=== PATIENT | male | born 1935 | race Caucasian/White ===

== ENCOUNTER 2017-06-26 05:50 | Observation (INO) | payer MEDICARE, BC ==
--- NOTE | 2017-06-26 06:09 | EDM.PDOC ---
ED HPI GENERAL MEDICAL PROBLEM - General Chief Complaint: General Stated Complaint: DIZZY Time Seen by Provider: 06/26/17 06:00 Source of Information: Reports: Patient - History of Present Illness INITIAL COMMENTS - FREE TEXT/NARRATIVE: Ramin is an 82 year old male who presents to the ED with complaints of dizziness. He reports that he woke up around 3 am and felt somewhat dizzy. He then went back to bed and got up around 530 and felt even more dizzy. He reports he had a near syncopal episode while in the bathroom. At times he describes the dizziness as spinning, "like everything is moving very fast" and other times he states it "felt as though he was going to pass out." He reports he had to lean on the tub and doesn't really remember what happened. He then called for a ride to the ED. At time of ED presentation, dizziness has resolved. He does have some slight dizziness with position changes. He reports he has been eating and drinking ok. He reports a history of 2 strokes. He is on coumadin. Last INR was checked on and was 1.54. He reports he has been taking his coumadin as prescribed. He denies any recent illness. Reports that other than the dizziness he has been feeling ok. He is somewhat of a poor historian. Onset: Today Onset Date: 06/26/17 Onset Time: 03:00 Duration: Intermittent Associated Symptoms: Reports: Confusion, Syncope (near), Other (dizziness). Denies: Chest Pain, Cough, cough w sputum, Diaphoresis, Fever/Chills, Headaches , Loss of Appetite, Malaise, Nausea/Vomiting, Rash, Seizure, Shortness of Breath , Weakness - Related Data Allergies Allergy/AdvReac Type Severity Reaction Status Date / Time codeine Allergy Cannot Verified 06/26/17 05:57 Remember contrast dye Allergy Difficulty Uncoded 06/26/17 05:57 Breathing Home Meds: Home Meds Aspirin [Roberta Chewable Aspirin] 81 mg PO DAILY 11/06/13 [History] Metoprolol Succinate [Toprol XL 50mg] 50 mg PO BID 11/06/13 [History] Omeprazole 20 mg PO DAILY 11/06/13 [History] Polyethylene Glycol 3350 [Miralax] 17 gm PO DAILY 11/06/13 [History] diphenhydrAMINE [Benadryl] 25 mg PO BEDTIME PRN #30 11/08/13 [Rx] Dutasteride [Dutasteride] 0.5 mg PO DAILY 06/26/17 [History] LORazepam 0.5 mg PO BID PRN 06/26/17 [History] Tamsulosin [Tamsulosin 24 Hr] 0.4 mg PO DAILY 06/26/17 [History] Warfarin [Coumadin] 5 mg PO ASDIRECTED 06/26/17 [History] Social & Family History - Tobacco Use Second Hand Smoke Exposure: No - Alcohol Use Days Per Week of Alcohol Use: 0 - Recreational Drug Use Recreational Drug Use: No ED ROS GENERAL - Review of Systems Review Of Systems: See Below Constitutional: Denies: Fever, Chills, Weakness, Fatigue, Decreased Appetite HEENT: Reports: Hearing Loss, Vertigo. Denies: Ear Pain, Eye Pain, Rhinitis, Sinus Problem, Throat Pain, Vision Change Respiratory: Denies: Shortness of Breath, Pleuritic Chest Pain, Cough, Sputum Cardiovascular: Reports: Dyspnea on Exertion, Lightheadedness, Syncope (near). Denies: Chest Pain, Blood Pressure Problem, Edema, Palpitations Endocrine: Reports: No Symptoms GI/Abdominal: Reports: Constipation. Denies: Abdominal Pain, Black Stool, Bloody Stool, Diarrhea, Decreased Appetite, Hematochezia, Melena, Nausea, Vomiting : Reports: Frequency, Urgency, Urinary Retention. Denies: Dysuria, Hematuria Musculoskeletal: Reports: No Symptoms Skin: Reports: No Symptoms Neurological: Reports: Dizziness, Syncope. Denies: Confusion, Numbness, Paresthesia, Pre-Existing Deficit, Seizure, Tingling, Trouble Speaking, Difficulty Walking, Weakness, Change in Speech, Gait Disturbance Psychiatric: Reports: No Symptoms Hematologic/Lymphatic: Reports: No Symptoms Immunologic: Reports: No Symptoms ED EXAM, GENERAL - Physical Exam Exam: See Below Exam Limited By: No Limitations General Appearance: Alert, WD/WN, No Apparent Distress Eye Exam: Bilateral Eye: Normal Fundi, Normal Inspection, PERRL Ears: Normal External Exam, Normal Canal, Hearing Grossly Normal, Normal TMs Ear Exam: Bilateral Ear: Auricle Normal, Canal Normal, TM normal Nose: Normal Inspection, Normal Mucosa, No Blood Throat/Mouth: Normal Inspection, Normal Lips, Normal Teeth, Normal Gums, Normal Oropharynx, Normal Voice, No Airway Compromise Head: Atraumatic, Normocephalic Neck: Normal Inspection, Supple, Non-Tender, Full Range of Motion Respiratory/Chest: No Respiratory Distress, Lungs Clear, Normal Breath Sounds, No Accessory Muscle Use, Chest Non-Tender Cardiovascular: Normal Peripheral Pulses, Regular Rate, Rhythm, No Edema, No Gallop, No JVD, No Murmur, No Rub Back Exam: Normal Inspection, Full Range of Motion, NT Neurological: Alert, Oriented, CN II-XII Intact, Normal Cognition, Normal Gait, Normal Reflexes, No Motor/Sensory Deficits Psychiatric: Normal Affect, Normal Mood Skin Exam: Warm, Dry, Intact, Normal Color, No Rash Lymphatic: No Adenopathy Course - Vital Signs Last Recorded V/S: Last Vital Signs Temp 96.8 F 06/26/17 15:46 Pulse 64 06/26/17 15:46 Resp 20 06/26/17 15:46 BP 132/72 06/26/17 15:46 Pulse Ox 97 06/26/17 15:46 Orthostatic Blood Pressure [ 154/88 Standing] Orthostatic Blood Pressure [ 157/88 Sitting] Orthostatic Blood Pressure [ 162/84 Supine] - Orders/Labs/Meds Orders: Active Orders 24 hr Category Date Time Status Patient Status [ADT] Routine ADT 06/26/17 09:39 Active Cardiac Monitoring [RC] 0800,1999 Care 06/26/17 09:39 Active Oxygen Therapy [RC] .PRN Care 06/26/17 09:39 Active Up With Assistance [RC] .PRN Care 06/26/17 09:39 Active Vital Signs [RC] 0000,0400,0800,1200,1600,2000 Care 06/26/17 09:39 Active PT Evaluation and Treatment [CONS] Routine Cons 06/26/17 09:39 Active Regular Diet [DIET] Diet 06/26/17 Breakfast Active Ang Head wo Cont [MR] Routine Exams 06/26/17 Taken Head wo Cont [CT] Stat Exams 06/26/17 06:08 Taken Sinus Less 3V [CR] Routine Exams 06/26/17 Taken Acetaminophen [Tylenol] Med 06/26/17 09:39 Active 650 mg PO Q4H PRN Magnesium Hydroxide [Milk of Magnesia] Med 06/26/17 09:39 Active 30 ml PO Q12H PRN Ondansetron [Zofran] Med 02/20/18 09:39 Active 4 mg IV Q6H PRN Sodium Chloride 0.9% [Saline Flush] Med 06/26/17 09:39 Active 10 ml FLUSH ASDIRECTED PRN Temazepam [Restoril] Med 06/26/17 09:39 Active 15 mg PO BEDTIME PRN Saline Lock Insert [OM.PC] Routine Oth 06/26/17 09:39 Ordered Resuscitation Status Routine Resus Stat 06/26/17 07:56 Ordered Medication Orders Acetaminophen (Tylenol) 650 mg PO Q4H PRN PRN Reason: Pain (Mild 1-3)/fever Aspirin (Aspirin) 81 mg PO DAILY [facility] Diphenhydramine HCl (Benadryl) 25 mg PO BEDTIME PRN PRN Reason: Insomnia Lorazepam (Ativan) 0.5 mg PO BID PRN PRN Reason: Anxiety Magnesium Hydroxide (Milk Of Magnesia) 30 ml PO Q12H PRN PRN Reason: Constipation Ptom Dutasteride (0.5 Mg Cap) 0.5 mg PO DAILY [facility] Last Admin: 06/26/17 14:14 Dose: 0.5 mg Ptom Metoprolol Succinate [Toprol Xl 50mg] 50 Mg) 50 mg PO BID [facility] Ptom Omeprazole (20 Mg Cap) 20 mg PO DAILY [facility] Last Admin: 06/26/17 14:15 Dose: 20 mg Ondansetron HCl (Zofran) 4 mg IV Q6H PRN PRN Reason: Nausea/Vomiting Polyethylene Glycol (Miralax) 17 gm PO DAILY [facility] Sodium Chloride (Saline Flush) 10 ml FLUSH ASDIRECTED PRN PRN Reason: Keep Vein Open Tamsulosin HCl (Flomax) 0.4 mg PO DAILY [facility] Last Admin: 06/26/17 14:15 Dose: 0.4 mg Temazepam (Restoril) 15 mg PO BEDTIME PRN PRN Reason: Sleep Warfarin Sodium (Coumadin) 0 mg PO DAILY@1200 [facility] Labs: Laboratory Tests 06/26/17 06/26/17 06/26/17 Range/Units 06:23 06:35 06:35 WBC 8.3 (5.0-10.0) 10^3/uL RBC 4.33 L (4.50-6.00) 10^6/uL Hgb 14.0 (14.0-18.0) g/dL Hct 40.8 (40.0-54.0) % MCV 94.2 H (82.0-94.0) fL MCH 32.3 H (27.0-32.0) pg MCHC 34.3 (33.0-38.0) g/dL RDW Coeff of Desiree 13.4 (11.0-15.0) % Plt Count 187 (150-400) 10^3/uL Neut % (Auto) 52.3 (35-85) % Lymph % (Auto) 36.2 (10-55) % [place] % (Auto) 9.0 (0-16) % Eos % (Auto) 1.9 (0-5) % Baso % (Auto) 0.6 (0-3) % Neut # (Auto) 4.32 (1.80-7.00) 10^3/uL Lymph # (Auto) 2.99 (1.00-4.80) 10^3/uL [place] # (Auto) 0.74 (0.00-0.80) 10^3/uL Eos # (Auto) 0.16 (0.00-0.45) 10^3/uL Baso # (Auto) 0.05 10^3/uL PT (9.7-12.3) SEC INR (0.92-1.18) APTT (24.5-30.9) SEC D-Dimer, Quantitative (0.00-0.50) Sodium 140 (136-145) mEq/L Potassium 4.3 (3.5-5.0) mEq/L Chloride 104 (98-106) mEq/L Carbon Dioxide 29 (21-32) mmol/L BUN 14 (7-18) mg/dL Creatinine 1.2 (0.7-1.3) mg/dL Est Cr Clr Drug Dosing 42.84 mL/min Estimated GFR (MDRD) 58 L (>=60) mL/min Glucose 119 H (75-99) mg/dL Calcium 9.1 (8.4-10.1) mg/dL Total Bilirubin 0.8 (0.0-1.0) mg/dL AST 20 (15-37) U/L ALT 29 (12-78) U/L Alkaline Phosphatase 105 (46-116) U/L Lactate Dehydrogenase 187 (100-190) U/L Troponin I < 0.017 (0.00-0.06) ng/mL C-Reactive Protein < 0.2 L (0.2-0.8) mg/dL Total Protein 6.7 (6.4-8.2) g/dL Albumin 3.5 (3.4-5.0) g/dL Urine Color Yellow (YELLOW) Urine Appearance Clear (CLEAR) Urine pH 6.5 (4.5-8.0) Ur Specific [place] 1.015 (1.003-1.020) Urine Protein Negative (NEGATIVE) mg/dL Urine Glucose (UA) Negative (NEGATIVE) mg/dL Urine Ketones Negative (NEGATIVE) mg/dL Urine Occult Blood Trace-intact H (NEGATIVE) Urine Nitrite Negative (NEGATIVE) Urine Bilirubin Negative (NEGATIVE) Urine Urobilinogen 0.2 (0.2-1.0) EU/dL Ur Leukocyte Esterase Negative (NEGATIVE) Urine RBC 0-5 (0-5) /HPF Urine WBC Not seen (0-5) /HPF Ur Squamous Epith Cells Occasional H (NOT SEEN) /HPF Urine Mucus Occasional H (NOT SEEN) /HPF 06/26/17 Range/Units 06:35 WBC (5.0-10.0) 10^3/uL RBC (4.50-6.00) 10^6/uL Hgb (14.0-18.0) g/dL Hct (40.0-54.0) % MCV (82.0-94.0) fL MCH (27.0-32.0) pg MCHC (33.0-38.0) g/dL RDW Coeff of Desiree (11.0-15.0) % Plt Count (150-400) 10^3/uL Neut % (Auto) (35-85) % Lymph % (Auto) (10-55) % [place] % (Auto) (0-16) % Eos % (Auto) (0-5) % Baso % (Auto) (0-3) % Neut # (Auto) (1.80-7.00) 10^3/uL Lymph # (Auto) (1.00-4.80) 10^3/uL [place] # (Auto) (0.00-0.80) 10^3/uL Eos # (Auto) (0.00-0.45) 10^3/uL Baso # (Auto) 10^3/uL PT 19.5 H (9.7-12.3) SEC INR 1.77 H (0.92-1.18) APTT 33.2 H (24.5-30.9) SEC D-Dimer, Quantitative 0.39 (0.00-0.50) Sodium (136-145) mEq/L Potassium (3.5-5.0) mEq/L Chloride (98-106) mEq/L Carbon Dioxide (21-32) mmol/L BUN (7-18) mg/dL Creatinine (0.7-1.3) mg/dL Est Cr Clr Drug Dosing mL/min Estimated GFR (MDRD) (>=60) mL/min Glucose (75-99) mg/dL Calcium (8.4-10.1) mg/dL Total Bilirubin (0.0-1.0) mg/dL AST (15-37) U/L ALT (12-78) U/L Alkaline Phosphatase (46-116) U/L Lactate Dehydrogenase (100-190) U/L Troponin I (0.00-0.06) ng/mL C-Reactive Protein (0.2-0.8) mg/dL Total Protein (6.4-8.2) g/dL Albumin (3.4-5.0) g/dL Urine Color (YELLOW) Urine Appearance (CLEAR) Urine pH (4.5-8.0) Ur Specific [place] (1.003-1.020) Urine Protein (NEGATIVE) mg/dL Urine Glucose (UA) (NEGATIVE) mg/dL Urine Ketones (NEGATIVE) mg/dL Urine Occult Blood (NEGATIVE) Urine Nitrite (NEGATIVE) Urine Bilirubin (NEGATIVE) Urine Urobilinogen (0.2-1.0) EU/dL Ur Leukocyte Esterase (NEGATIVE) Urine RBC (0-5) /HPF Urine WBC (0-5) /HPF Ur Squamous Epith Cells (NOT SEEN) /HPF Urine Mucus (NOT SEEN) /HPF Meds: Medications Generic Name Dose Route Start Last Admin Trade Name Freq PRN Reason Stop Dose Admin Acetaminophen 650 mg 06/26/17 09:39 Tylenol PO Q4H PRN Pain (Mild 1-3)/fever Aspirin 81 mg 06/27/17 08:00 Aspirin PO DAILY NUHA Diphenhydramine HCl 25 mg 06/26/17 12:34 Benadryl PO BEDTIME PRN Insomnia Lorazepam 0.5 mg 06/26/17 12:34 Ativan PO BID PRN Anxiety Magnesium Hydroxide 30 ml 06/26/17 09:39 Milk Of Magnesia PO Q12H PRN Constipation Ptom Dutasteride 0.5 mg 06/26/17 14:00 06/26/17 14:14 0.5 Mg Cap PO 0.5 mg DAILY NUHA Administration Ptom Metoprolol 50 mg 06/26/17 20:00 Succinate [Toprol Xl PO 50mg] 50 Mg) BID NUHA Ptom Omeprazole 20 mg 06/26/17 14:00 06/26/17 14:15 20 Mg Cap PO 20 mg DAILY [facility] Administration Ondansetron HCl 4 mg 06/26/17 09:39 Zofran IV Q6H PRN Nausea/Vomiting Polyethylene Glycol 17 gm 06/27/17 08:00 Miralax PO DAILY [facility] Sodium Chloride 10 ml 06/26/17 09:39 Saline Flush FLUSH ASDIRECTED PRN Keep Vein Open Tamsulosin HCl 0.4 mg 06/26/17 14:00 06/26/17 14:15 Flomax PO 0.4 mg DAILY [facility] Administration Temazepam 15 mg 06/26/17 09:39 Restoril PO BEDTIME PRN Sleep Warfarin Sodium 0 mg 06/27/17 12:00 Coumadin PO DAILY@1200 NUHA Discontinued Medications Generic Name Dose Route Start Last Admin Trade Name Freq PRN Reason Stop Dose Admin Warfarin Sodium 0 mg 06/27/17 08:00 06/26/17 14:16 Coumadin PO 5 mg DAILY NUHA Administration - Radiology Interpretation Free Text/Narrative:: Head CT negative for acute infarct or hemorrhage. - Re-Assessments/Exams Free Text/Narrative Re-Assessment/Exam: Lab work all stable. No obvious indication for dizziness/near syncopal episode. Discussed case with Dr. Peres. We will admit to observation with telemetry and proceed with MRI of brain with and without contrast. Patient does have an allergy to contrast dye. Discussed with radiology safe way to further analyze brain and this was his recommendation. Departure - Departure Time of Disposition: 07:30 Disposition: Refer to Observation Condition: Good Clinical Impression: Dizziness, Near syncope - Discharge Information - My Orders Last 24 Hours: My Active Orders 06/26/17 Ang Head wo Cont [MR] Routine 06/26/17 06:08 Head wo Cont [CT] Stat 06/26/17 07:56 Resuscitation Status Routine 06/26/17 09:39 Patient Status [ADT] Routine Cardiac Monitoring [RC] 0800,1999 Oxygen Therapy [RC] .PRN Up With Assistance [RC] .PRN Vital Signs [RC] 0000,0400,0800,1200,1600,1999 PT Evaluation and Treatment [CONS] Routine Acetaminophen [Tylenol] 650 mg PO Q4H PRN Magnesium Hydroxide [Milk of Magnesia] 30 ml PO Q12H PRN Ondansetron [Zofran] 4 mg IV Q6H PRN Sodium Chloride 0.9% [Saline Flush] 10 ml FLUSH ASDIRECTED PRN Temazepam [Restoril] 15 mg PO BEDTIME PRN Saline Lock Insert [OM.PC] Routine 06/26/17 Breakfast Regular Diet [DIET] - Assessment/Plan Last 24 Hours: My Active Orders 06/26/17 Ang Head wo Cont [MR] Routine 06/26/17 06:08 Head wo Cont [CT] Stat 06/26/17 07:56 Resuscitation Status Routine 06/26/17 09:39 Patient Status [ADT] Routine Cardiac Monitoring [RC] 08,1999 Oxygen Therapy [RC] .PRN Up With Assistance [RC] .PRN Vital Signs [RC] 0000,0400,0800,1200,1600,2000 PT Evaluation and Treatment [CONS] Routine Acetaminophen [Tylenol] 650 mg PO Q4H PRN Magnesium Hydroxide [Milk of Magnesia] 30 ml PO Q12H PRN Ondansetron [Zofran] 4 mg IV Q6H PRN Sodium Chloride 0.9% [Saline Flush] 10 ml FLUSH ASDIRECTED PRN Temazepam [Restoril] 15 mg PO BEDTIME PRN Saline Lock Insert [OM.PC] Routine 06/26/17 Breakfast Regular Diet [DIET]
[2017-06-26 06:57] LABS: CHLORIDE,CL 104 mEq/L (98-106); SODIUM,NA 140 mEq/L (136-145)
[2017-06-26] MEDS ORDERED: Magnesium Hydroxide 400 MG/5 ML Susp 30 ML Cup PO PRN (09:39)
[2017-06-26] MEDS ORDERED: Sodium Chloride 0.9% 10 ML Syringe FLUSH PRN (09:39)
[2017-06-26] MEDS ORDERED: Acetaminophen 325 MG Tab PO PRN (09:39)
[2017-06-26] MEDS ORDERED: Temazepam 15 MG Cap PO PRN (09:39)
[2017-06-26] MEDS ORDERED: Ondansetron 4 MG/2 ML SDV IV PRN (09:39)
[2017-06-26] MEDS ORDERED: LORazepam 0.5 MG Tab PO PRN (12:34)
[2017-06-26] MEDS ORDERED: diphenhydrAMINE 25 MG Cap PO PRN (12:34)
[2017-06-26] MEDS: DUTASTERIDE 0.5 MG PO SCH (14:14)
[2017-06-26] MEDS: OMEPRAZOLE 20 MG PO SCH (14:15)
[2017-06-26] MEDS: **PTOM** Tamsulosin 0.4 MG Cap.ER PO SCH (14:15)
[2017-06-26] MEDS: METOPROLOL SUCCINATE 50 MG PO SCH (19:38)
[2017-06-27] MEDS ORDERED: Polyethylene Glycol 3350 Powder 17 GM Packet PO SCH (08:00)
[2017-06-27] MEDS ORDERED: ASPIRIN 81 MG PO SCH (08:00)
[2017-06-27] MEDS ORDERED: **PTOM** Warfarin 5 MG Tab PO SCH ×2 (08:00→12:00)
[2017-06-27] MEDS: DUTASTERIDE 0.5 MG PO SCH (08:25)
[2017-06-27] MEDS: METOPROLOL SUCCINATE 50 MG PO SCH (08:26)
[2017-06-27] MEDS: **PTOM** Tamsulosin 0.4 MG Cap.ER PO SCH (08:26)
[2017-06-27] MEDS: OMEPRAZOLE 20 MG PO SCH (08:26)
--- NOTE | 2017-06-27 09:21 | DISCH ---
HOSPITAL COURSE: Ramin Perry came in yesterday with severe dizziness, question TIAs, admitted to the hospital, placed on observation. We started some physical therapy on him. MRIs head and neck are pending. Lab here in the hospital, CBC panel, troponins, D-dimer, urine, all looked good. DISCHARGE PHYSICAL EXAMINATION: NECK: Supple. CHEST: Clear. CARDIAC: Regular. NEUROLOGICAL: He was stable. DISPOSITION: The patient is now discharged home. He will have an echo, 24-hour Holter monitor, and I will see him back in the clinic next week and possibly order an EEG to rule out seizures. DISCHARGE MEDICATIONS: Home medications plus meclizine. DISCHARGE DIAGNOSIS: 1. DIZZINESS, QUESTION TRANSIENT ISCHEMIC ATTACK. 2. CEREBROVASCULAR ACCIDENT. 3. HYPERTENSION. DEYA /[id number]
== END 2017-06-27 16:00 | disposition home or self-care (01) ==
LOC: CC.ED 05:50 → UNDOADMOB 08:19 → CC.MS 08:19
PROVIDERS: ADMIT Nurse Practitioner Family; ATTEND General Practice
DX: R42 Dizziness and giddiness (principal); I63.9 Cerebral infarction, unspecified; I10 Essential (primary) hypertension; Z88.8 Allergy status to other drugs, medicaments and biological substances; Z91.041 Radiographic dye allergy status; Z79.82 Long term (current) use of aspirin; Z79.01 Long term (current) use of anticoagulants; Z79.899 Other long term (current) drug therapy
CPT/HCPCS: 36415; 70450; 70544; 70549; 70553; 80053; 81001; 83615; 84484; 85025; 85379; 85610; 85730; 86140; 93005; 93306; 97010-GP; 97140-GP; 97161-GP; 99285; A9270-GY; A9579; G0378

== ENCOUNTER 2018-05-23 12:30 | Emergency (ER) | payer MEDICARE, BC ==
[2018-05-23] MEDS ORDERED: Lidocaine 1% 20 ML MDV ONE (13:06)
[2018-05-23] MEDS ORDERED: Lidocaine 1% 20 ML MDV INJECT ONE (13:15)
[2018-05-23] MEDS ORDERED: Diphtheria,Pertussis(Acell),Tetanus Vaccine 0.5 ML Syringe IM ONE (13:17)
--- NOTE | 2018-05-23 13:37 | EDM.PDOC ---
ED HPI GENERAL MEDICAL PROBLEM - General Chief Complaint: Trauma Stated Complaint: LT HAND/FELL DOWN Time Seen by Provider: 05/23/18 12:45 Source of Information: Reports: Patient, Family History Limitations: Reports: No Limitations - History of Present Illness INITIAL COMMENTS - FREE TEXT/NARRATIVE: Patient presents to ER with complaints of left shoulder and finger pain. He was stepping out of his vehicle and slipped on the ice, landing on his left side. Is unsure what he caught his hand on but did note deformity and laceration of his finger. He has minimal pain in his finger. Does feel discomfort more in the left shoulder. He has chronic shoulder pain, somewhat more now as he feels he reached out to grab the door to try to prevent the fall. Patient denies any head trauma. No loss of consciousness. No chest pain , shortness of breath. No pelvic discomfort. No gait abnormality. 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 Onset: Today, Sudden Duration: Minutes: Location: Reports: Upper Extremity, Left Quality: Reports: Ache, Dull Severity: Mild Improves with: Reports: Rest Worsens with: Reports: Movement Context: Reports: Trauma Associated Symptoms: Denies: Confusion, Chest Pain, Fever/Chills, Headaches, Nausea/Vomiting, Shortness of Breath, Syncope, Weakness Left Shoulder Pain Score (Numeric/FACES): 4 - Related Data Allergies Allergy/AdvReac Type Severity Reaction Status Date / Time codeine Allergy Cannot Verified 05/23/18 12:45 Remember contrast dye Allergy Difficulty Uncoded 05/23/18 12:45 Breathing Home Meds: Home Meds Aspirin [Roberta Chewable Aspirin] 81 mg PO DAILY 11/06/13 [History] Metoprolol Succinate [Toprol XL 50mg] 50 mg PO BID 11/06/13 [History] Omeprazole 20 mg PO DAILY 11/06/13 [History] Polyethylene Glycol 3350 [Miralax] 17 gm PO DAILY 11/06/13 [History] diphenhydrAMINE [Benadryl] 25 mg PO BEDTIME PRN #30 11/08/13 [Rx] Dutasteride 0.5 mg PO DAILY 06/26/17 [History] LORazepam 0.5 mg PO BID PRN 06/26/17 [History] Tamsulosin [Flomax] 0.4 mg PO DAILY 06/26/17 [History] Warfarin [Coumadin] 5 mg PO ASDIRECTED 06/26/17 [History] Past Medical History HEENT History: Reports: Cataract Cardiovascular History: Reports: Hypertension Genitourinary History: Reports: BPH Neurological History: Reports: CVA Social & Family History - Family History Family Medical History: Noncontributory Review of Systems - Review of Systems Review Of Systems: See Below Constitutional: Denies: Weakness Eyes: Denies: Vision Change Ears: Denies: Dizziness Nose: Reports: No Symptoms Mouth/Throat: Reports: No Symptoms Respiratory: Denies: Shortness of Breath Cardiovascular: Denies: Chest Pain, Syncope GI/Abdominal: Denies: Abdominal Pain, Nausea, Vomiting Genitourinary: Reports: No Symptoms Musculoskeletal: Reports: Shoulder Pain, Hand Pain Skin: Reports: Wound Neurological: Denies: Confusion, Dizziness, Headache, Syncope, Weakness Psychiatric: Reports: No Symptoms ED EXAM, GENERAL - Physical Exam Exam: See Below Free Text/Narrative:: Trauma code initiated by nursing. Primary Survey Airway patent, speaking clearing. Breath sound clear. No chest wall deformity. Cardiac Reg S1, S2 Alert and oriented x3. GCS 15 Pelvis without pain or instability Exam Limited By: No Limitations General Appearance: Alert, WD/WN, No Apparent Distress Ears: Normal External Exam, Normal TMs Nose: Normal Inspection, Normal Mucosa, No Blood Throat/Mouth: Normal Inspection, Normal Oropharynx Head: Atraumatic, Normocephalic Neck: Normal Inspection, Supple, Non-Tender Respiratory/Chest: No Respiratory Distress, Lungs Clear, Normal Breath Sounds Cardiovascular: Regular Rate, Rhythm GI/Abdominal: Normal Bowel Sounds, Soft, Non-Tender Back Exam: Normal Inspection Extremities: Limited Range of Motion (patient has limited abduction with bilateral shoulders. No tenderness with exam. Good range of motion of back. No pelvic pain. ), Other (Patient does have laceration to the left index finger. Obvious distal deformity, finger in flexed position. Able to flex and extend finger by exam.) Neurological: Alert, Oriented, CN II-XII Intact Skin Exam: Wound/Incision (Laceration 2 cm noted to base of nail and finger of left index finger. ) ED TRAUMA PROCEDURES - Laceration/Wound Repair Left Digit - 4th (Ring) Lac/Wound Length In cm: 2 Appearance: Superficial, Irregular Distal NVT: Neuro & Vascular Intact, No Tendon Injury Anesthetic Type: Digital Local Anesthesia - Lidocaine (Xylocaine): 1% Plain Local Anesthetic Volume: 3cc Skin Prep: Other (ONI CLEJOANNE) Exploration/Debridement/Repair: Wound Explored, Explored to Base Closed With: Sutures Suture Size: 4-0 # of Sutures: 2 Suture Type: Nylon, Interrupted, Simple Sterile Dressing Applied: Provider (sterile bandage and finger splint placed after reduction of distal tip and placement sustained with splint.) Tetanus Status Addressed: Yes Complications: No Course - Vital Signs Last Recorded V/S: Last Vital Signs Temp 97 F 05/23/18 13:39 Pulse 72 05/23/18 13:39 Resp 20 05/23/18 13:39 BP 180/72 H 05/23/18 13:39 Pulse Ox 100 05/23/18 13:39 - Orders/Labs/Meds Orders: Active Orders 24 hr Category Date Time Status Vaccines to be Administered [RC] PER UNIT ROUTINE Care 05/23/18 13:17 Active Chest 2V [CR] Routine Exams 05/23/18 Taken Hand Comp Min 3V Lt [CR] Routine Exams 05/23/18 Taken Shoulder Comp Lt [CR] Routine Exams 05/23/18 Taken Labs: Laboratory Tests 05/23/18 Range/Units 13:11 PT 18.3 H (9.7-12.3) SEC INR 1.84 H (0.92-1.18) Meds: Medications Discontinued Medications Generic Name Dose Route Start Last Admin Trade Name Freq PRN Reason Stop Dose Admin Diphtheria/Tetanus/Acell Pertussis 0.5 ml 05/23/18 13:17 05/23/18 13:21 Adacel IM 05/23/18 13:18 0.5 ml .ONCE ONE Administration Lidocaine HCl 10 ml 05/23/18 13:15 05/23/18 13:25 Xylocaine 1% INJECT 05/23/18 13:16 10 ml ONETIME ONE Administration Lidocaine HCl Confirm 05/23/18 13:06 Xylocaine 1% Administered 05/23/18 13:07 Dose 20 ml .ROUTE .STK-MED ONE - Re-Assessments/Exams Free Text/Narrative Re-Assessment/Exam: 05/23/18 Trauma code called. Patient had no head injury, no concerns except left upper extremity pain. Neuro exam normal, no head or neck pain. CT of head, c-spine, pelvix xray not warranted due to no mechanism of injury of concern. Labs not needed as only trauma sustained was to left upper extremity other than INR checked today. INR therapeutic. IV held as no evidence of needed pain meds, fluids. GCS remains 15 throughout exam and procedure. Departure - Departure Time of Disposition: 13:35 Disposition: Home, Self-Care 01 Condition: Good Clinical Impression: Laceration of finger, Phalanx, distal fracture of finger - Discharge Information *PRESCRIPTION DRUG MONITORING PROGRAM REVIEWED*: No *COPY OF PRESCRIPTION DRUG MONITORING REPORT IN PATIENT MIKE: No Referrals: Ashlee Tapia PA-C [Primary Care Provider] - Forms: ED Department Discharge Additional Instructions: 1. Keep wound clean and dry 2. Splint on until appointment with Ashlee Tapia 3. Change bandage tomorrow 4. Follow up with Ashlee in 10 days for xray and suture removal - My Orders Last 24 Hours: My Active Orders 05/23/18 Chest 2V [CR] Routine Hand Comp Min 3V Lt [CR] Routine Shoulder Comp Lt [CR] Routine 05/23/18 13:17 Vaccines to be Administered [RC] PER UNIT ROUTINE - Assessment/Plan Last 24 Hours: My Active Orders 05/23/18 Chest 2V [CR] Routine Hand Comp Min 3V Lt [CR] Routine Shoulder Comp Lt [CR] Routine 05/23/18 13:17 Vaccines to be Administered [RC] PER UNIT ROUTINE
== END 2018-05-23 13:50 | disposition home or self-care (01) ==
LOC: CC.ED 12:30
DX: S62.635A Displaced fracture of distal phalanx of left ring finger, initial encounter for closed fracture (principal); S61.215A Laceration without foreign body of left ring finger without damage to nail, initial encounter; I10 Essential (primary) hypertension; W00.0XXA Fall on same level due to ice and snow, initial encounter; Z88.5 Allergy status to narcotic agent; Z91.041 Radiographic dye allergy status; Z23 Encounter for immunization; Z79.01 Long term (current) use of anticoagulants
CPT/HCPCS: 12001; 36415; 71046; 73030-LT; 73130-LT; 85610; 90471; 90715; 99284

== ENCOUNTER 2019-01-15 19:13 | Emergency (ER) | payer MEDICARE, BC ==
--- NOTE | 2019-01-15 20:01 | EDM.PDOC ---
ED HPI GENERAL MEDICAL PROBLEM - General Chief Complaint: Gastrointestinal Problem Stated Complaint: CONSTIPATION Time Seen by Provider: 01/15/19 19:25 Source of Information: Reports: Patient History Limitations: Reports: No Limitations - History of Present Illness INITIAL COMMENTS - FREE TEXT/NARRATIVE: Patient presents to ER with rectal pressure. States has not had a good bowel movement in several days. Typically takes Miralax every other day or so and it usually works well for him. Had only a small BM this am with hard stool, took Miralax this afternoon and evening without results. Has "tried to push for 3 hours" and no results and is worried about this continuing through the night. Denies any abdominal pain, just rectal pressure. No fevers. No nausea or vomiting. Was able to eat and drink today. 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: Other Medication(s) (miralax) Rectal Pain Score (Numeric/FACES): 5 - Related Data Allergies Allergy/AdvReac Type Severity Reaction Status Date / Time codeine Allergy Cannot Verified 01/15/19 19:37 Remember contrast dye Allergy Difficulty Uncoded 01/15/19 19:37 Breathing Home Meds: Home Meds Aspirin [Roberta Chewable Aspirin] 81 mg PO DAILY 11/06/13 [History] Metoprolol Succinate [Toprol XL 50mg] 50 mg PO BID 11/06/13 [History] Omeprazole 20 mg PO DAILY 11/06/13 [History] Polyethylene Glycol 3350 [Miralax] 17 gm PO DAILY 11/06/13 [History] diphenhydrAMINE [Benadryl] 25 mg PO BEDTIME PRN #30 11/08/13 [Rx] Dutasteride 0.5 mg PO DAILY 06/26/17 [History] LORazepam 0.5 mg PO BID PRN 06/26/17 [History] Tamsulosin [Flomax] 0.4 mg PO DAILY 06/26/17 [History] Warfarin [Coumadin] 5 mg PO ASDIRECTED 06/26/17 [History] Meclizine [Antivert] 25 mg PO TID PRN 01/15/19 [History] Warfarin [Coumadin] 7.5 mg PO TUTH 01/15/19 [History] Past Medical History HEENT History: Reports: Cataract Cardiovascular History: Reports: Hypertension Genitourinary History: Reports: BPH Neurological History: Reports: CVA - Past Surgical History Musculoskeletal Surgical History: Reports: Shoulder Replacement Social & Family History - Family History Family Medical History: Noncontributory - Tobacco Use Smoking Status *Q: Never Smoker - Caffeine Use Caffeine Use: Reports: None ED ROS GENERAL - Review of Systems Review Of Systems: See Below Constitutional: Denies: Fever, Chills, Malaise, Weakness, Decreased Appetite HEENT: Reports: No Symptoms Respiratory: Denies: Shortness of Breath, Cough Cardiovascular: Denies: Chest Pain, Edema, Lightheadedness Endocrine: Reports: No Symptoms GI/Abdominal: Reports: Abdominal Pain, Nausea. Denies: Vomiting : Reports: No Symptoms Musculoskeletal: Reports: No Symptoms Skin: Reports: No Symptoms ED EXAM, GI/ABD - Physical Exam Exam: See Below Exam Limited By: No Limitations General Appearance: Alert, WD/WN, No Apparent Distress Ears: Normal External Exam, Normal TMs Nose: Normal Inspection, Normal Mucosa, No Blood Throat/Mouth: Normal Inspection, Normal Oropharynx Head: Normocephalic Neck: Normal Inspection, Supple, Non-Tender Respiratory/Chest: No Respiratory Distress, Lungs Clear, Normal Breath Sounds Cardiovascular: Regular Rate, Rhythm GI/Abdominal Exam: Normal Bowel Sounds, Soft, Non-Tender Rectal (Males) Exam: Fecal Impaction Neurological: Alert, Oriented Skin Exam: Warm, Dry Course - Vital Signs Last Recorded V/S: Last Vital Signs Temp 98.2 F 01/15/19 19:14 Pulse 84 01/15/19 19:14 Resp 16 01/15/19 19:14 BP 153/77 H 01/15/19 19:14 Pulse Ox 97 01/15/19 19:14 - Orders/Labs/Meds Orders: Active Orders 24 hr Category Date Time Status Enema [RC] ASDIRECTED Care 01/15/19 19:42 Active Abdomen 2V AP Flat Upright [CR] Stat Exams 01/15/19 19:22 Taken - Re-Assessments/Exams Free Text/Narrative Re-Assessment/Exam: 01/15/19 20:05 Fleets enema given with good results. Departure - Departure Time of Disposition: 20:05 Disposition: Home, Self-Care 01 Condition: Good Clinical Impression: Constipation - Discharge Information *PRESCRIPTION DRUG MONITORING PROGRAM REVIEWED*: Not Applicable *COPY OF PRESCRIPTION DRUG MONITORING REPORT IN PATIENT MIKE: Not Applicable Additional Instructions: 1. Push fluids 2. Miralax daily as needed 3. Rest 4. Follow up if any concerns. - My Orders Last 24 Hours: My Active Orders 01/15/19 19:22 Abdomen 2V AP Flat Upright [CR] Stat 01/15/19 19:42 Enema [RC] ASDIRECTED - Assessment/Plan Last 24 Hours: My Active Orders 01/15/19 19:22 Abdomen 2V AP Flat Upright [CR] Stat 01/15/19 19:42 Enema [RC] ASDIRECTED
== END 2019-01-15 20:15 | disposition home or self-care (01) ==
LOC: CC.ED 19:13
DX: K59.00 Constipation, unspecified (principal); I10 Essential (primary) hypertension; N40.0 Benign prostatic hyperplasia without lower urinary tract symptoms; Z88.5 Allergy status to narcotic agent; Z91.041 Radiographic dye allergy status; Z79.82 Long term (current) use of aspirin; Z79.899 Other long term (current) drug therapy
CPT/HCPCS: 74019; 99283; 99283-25

== ENCOUNTER 2019-02-20 23:50 | Emergency (ER) | payer MEDICARE, BC ==
[2019-02-20] MEDS ORDERED: traMADol 50 MG Tab PO ONE (23:51)
--- NOTE | 2019-02-21 00:40 | EDM.PDOC ---
ED HPI GENERAL MEDICAL PROBLEM - General Chief Complaint: General Stated Complaint: legs/feet swollen Time Seen by Provider: 02/21/19 00:15 Source of Information: Reports: Patient History Limitations: Reports: No Limitations - History of Present Illness INITIAL COMMENTS - FREE TEXT/NARRATIVE: States that his legs are swollen from the mid thigh down to the feet. Has been getting worse over the last several days. Does sit in recliner with legs down for extended periods of time. Wears support hose but notes that his legs are still swollen. Has increasing pain in his left hand. States that he couldn't sleep last night because it hurt so bad. Pain is in the palm of his hand and fingers 1-4. Hand is swollen and tender with palpation. Had left shoulder replaced about 4 months ago and continues to have some pain in it. Does try to keep busy and works on various projects during the day. Denies any SOB or chest pain with it. No cough. No recent falls. No numbness or tingling to the left arm. Has Dr. mcallister Sunday in [place] for carpal tunnel on the right hand. Is taking Gabapentin 100 mg. Was started on them Jan 31 and increased them daily until he is currently on 400 mg BID. Was started on them for the shoulder discomfort and then the carpal tunnel. He states that his hand hurt so bad last night that he could not sleep. Onset: Gradual Duration: Day(s): Location: Reports: Upper Extremity, Left, Lower Extremity, Left, Lower Extremity , Right Associated Symptoms: Denies: Shortness of Breath - Related Data Allergies Allergy/AdvReac Type Severity Reaction Status Date / Time codeine Allergy Cannot Verified 02/21/19 00:42 Remember contrast dye Allergy Difficulty Uncoded 02/21/19 00:42 Breathing Home Meds: Home Meds Metoprolol Succinate [Toprol XL 50mg] 50 mg PO DAILY 11/06/13 [History] Omeprazole 20 mg PO DAILY 11/06/13 [History] Polyethylene Glycol 3350 [Miralax] 17 gm PO DAILY 11/06/13 [History] diphenhydrAMINE [Benadryl] 25 mg PO BEDTIME PRN #30 11/08/13 [Rx] Warfarin [Coumadin] 5 mg PO SUMOWEFRSA 06/26/17 [History] Warfarin [Coumadin] 7.5 mg PO TUTH 01/15/19 [History] Alfuzosin HCl [Alfuzosin HCl ER] 10 mg PO DAILY 02/21/19 [History] Gabapentin [Neurontin] 200 mg PO BID 02/21/19 [History] Past Medical History HEENT History: Reports: Cataract Cardiovascular History: Reports: Hypertension Genitourinary History: Reports: BPH Neurological History: Reports: CVA - Past Surgical History Musculoskeletal Surgical History: Reports: Shoulder Replacement Social & Family History - Family History Family Medical History: Noncontributory - Caffeine Use Caffeine Use: Reports: None - Living Situation & Occupation Living situation: Reports: , Alone Occupation: Retired ED ROS GENERAL - Review of Systems Review Of Systems: See Below Constitutional: Denies: Fever, Chills HEENT: Reports: No Symptoms Respiratory: Reports: No Symptoms Cardiovascular: Reports: No Symptoms, Edema (legs bilaterally from mid thigh to toes.) GI/Abdominal: Reports: No Symptoms Musculoskeletal: Reports: Shoulder Pain (left), Arm Pain (left) Skin: Denies: Wound Neurological: Denies: Confusion ED EXAM, GENERAL - Physical Exam Exam: See Below Exam Limited By: No Limitations General Appearance: Alert, WD/WN, Mild Distress Ears: Normal External Exam, Normal Canal, Normal TMs Head: Atraumatic Neck: Normal Inspection, Supple, Non-Tender Respiratory/Chest: No Respiratory Distress, Lungs Clear, Normal Breath Sounds Cardiovascular: Normal Peripheral Pulses, Regular Rate, Rhythm GI/Abdominal: Normal Bowel Sounds, Soft, Non-Tender Back Exam: Normal Inspection Extremities: Normal Capillary Refill, Pedal Edema (to legs bilaterally. 1-2+ pitting. No open areas.) Neurological: Alert, Oriented Skin Exam: Warm, Dry, Intact Course - Vital Signs Last Recorded V/S: Last Vital Signs Temp 97.9 F 02/21/19 00:06 Pulse 83 02/21/19 00:06 Resp 18 02/21/19 00:06 BP 157/71 H 02/21/19 00:06 Pulse Ox 99 02/21/19 00:06 - Orders/Labs/Meds Labs: Laboratory Tests 02/21/19 02/21/19 Range/Units 00:40 00:40 WBC 8.1 (5.0-10.0) 10^3/uL RBC 4.37 L (4.50-6.00) 10^6/uL Hgb 13.7 L (14.0-18.0) g/dL Hct 40.0 (40.0-54.0) % MCV 91.5 (82.0-94.0) fL MCH 31.4 (27.0-32.0) pg MCHC 34.3 (33.0-38.0) g/dL RDW Coeff of Desiree 14.4 (11.0-15.0) % Plt Count 176 (150-400) 10^3/uL Neut % (Auto) 44.7 (35-85) % Lymph % (Auto) 44.2 (10-55) % Wetzel % (Auto) 8.8 (0-16) % Eos % (Auto) 1.9 (0-5) % Baso % (Auto) 0.4 (0-3) % Neut # (Auto) 3.61 (1.80-7.00) 10^3/uL Lymph # (Auto) 3.56 (1.00-4.80) 10^3/uL Wetzel # (Auto) 0.71 (0.00-0.80) 10^3/uL Eos # (Auto) 0.15 (0.00-0.45) 10^3/uL Baso # (Auto) 0.03 10^3/uL Sodium 142 (136-145) mEq/L Potassium 4.0 (3.5-5.0) mEq/L Chloride 105 (98-106) mEq/L Carbon Dioxide 27 (21-32) mmol/L BUN 20 H (7-18) mg/dL Creatinine 1.2 (0.7-1.3) mg/dL Est Cr Clr Drug Dosing 42.08 mL/min Estimated GFR (MDRD) 58 L (>=60) mL/min Glucose 113 H (75-99) mg/dL Calcium 8.7 (8.4-10.1) mg/dL Total Bilirubin 0.8 (0.0-1.0) mg/dL AST 15 (15-37) U/L ALT 24 (12-78) U/L Alkaline Phosphatase 103 (46-116) U/L C-Reactive Protein < 0.2 L (0.2-0.8) mg/dL NT-Pro-B Natriuret Pep 782 (0-1000) pg/mL Total Protein 7.0 (6.4-8.2) g/dL Albumin 3.5 (3.4-5.0) g/dL Meds: Medications Discontinued Medications Generic Name Dose Route Start Last Admin Trade Name Marcus PRN Reason Stop Dose Admin Tramadol HCl 1 packet 02/21/19 01:14 02/21/19 01:55 Take Home: Tramadol 50 Mg, 4 Tab Pack PO 02/21/19 01:15 1 packet ONETIME ONE Administration Tramadol HCl 200 mg 02/20/19 23:51 Ultram PO 02/20/19 23:52 .STK-MED ONE - Re-Assessments/Exams Free Text/Narrative Re-Assessment/Exam: 02/21/19 0115 DIscussed that labs are all normal. Edema is most likely from the gabapentin. will start the lasix tomorrow to help the edema follow up with the surgeon in [place] as scheduled on sunday Departure - Departure Time of Disposition: 01:16 Disposition: Home, Self-Care 01 Condition: Good Clinical Impression: Edema leg, Carpal tunnel syndrome of left wrist - Discharge Information *PRESCRIPTION DRUG MONITORING PROGRAM REVIEWED*: Not Applicable *COPY OF PRESCRIPTION DRUG MONITORING REPORT IN PATIENT MIKE: Not Applicable Referrals: Ashlee Tapia PA-C [Primary Care Provider] - Forms: ED Department Discharge Additional Instructions: Do not stop the gabapentin abruptly. This needs to be weaned down. Stay on 3 tablets twice a day until you see your doctor in [place] Tramadol 50 mg- take 1 tablet every 6 hours for hand pain as needed. Discuss this with your Dr. in [place] on Sunday Lasix- 40 mg take daily as needed for swelling in feet. Elevate legs when sitting in the chair. - Problem List & Annotations (1) Edema leg SNOMED Code(s): 277982454 Code(s): R60.0 - LOCALIZED EDEMA Status: Acute Priority: High (2) Carpal tunnel syndrome of left wrist SNOMED Code(s): 75234170 Code(s): G56.02 - CARPAL TUNNEL SYNDROME, LEFT UPPER LIMB Status: Acute Priority: Medium - Problem List Review Problem List Initiated/Reviewed/Updated: Yes
[2019-02-21 01:03] LABS: CHLORIDE,CL 105 mEq/L (98-106); SODIUM,NA 142 mEq/L (136-145)
[2019-02-21] MEDS: Take Home: traMADol 50 MG, 4 Tab Pack PO ONE (01:55)
== END 2019-02-21 01:19 | disposition home or self-care (01) ==
LOC: CC.ED 23:50
DX: G56.02 Carpal tunnel syndrome, left upper limb (principal); R60.0 Localized edema; I10 Essential (primary) hypertension; N40.0 Benign prostatic hyperplasia without lower urinary tract symptoms; Z88.5 Allergy status to narcotic agent; Z91.041 Radiographic dye allergy status; Z86.73 Personal history of transient ischemic attack (TIA), and cerebral infarction without residual deficits; Z79.01 Long term (current) use of anticoagulants
CPT/HCPCS: 36415; 80053; 83880; 85025; 86140; 99284; A9270-GY